=== PATIENT | female | born 1980 | race Caucasian/White ===

== ENCOUNTER 2017-11-12 22:13 | Emergency (ER) | payer MEDICAID ==
[~2017-11-12] VITALS: Ht 165.1 cm; Wt 65.4 kg
[2017-11-12 22:21] VITALS: Ht 165.1 cm; Wt 65.4 kg
[2017-11-12 23:37] LABS: UA SPECIFIC GRAVITY 1.025 (1.005-1.035); microscopic required? YES; urine erythrocyte NEGATIVE (NEGATIVE)
[2017-11-13 01:07] VITALS: BP 132/73
== END 2017-11-13 01:07 | disposition home or self-care (01) ==
LOC: ED 22:13
PROVIDERS: Emergency Medicine
DX: O23.41 Unspecified infection of urinary tract in pregnancy, first trimester (principal); Z3A.01 Less than 8 weeks gestation of pregnancy
CPT/HCPCS: Q0092

== ENCOUNTER 2018-01-21 17:48 | Emergency (ER) | payer MEDICAID ==
[~2018-01-21] VITALS: Ht 167.6 cm; Wt 77.6 kg
[2018-01-21 18:14] VITALS: Ht 167.6 cm; Wt 77.6 kg
[2018-01-21 20:10] LABS: UA SPECIFIC GRAVITY <=1.005 (1.005-1.035); microscopic required? YES; urine erythrocyte NEGATIVE (NEGATIVE)
[2018-01-21 20:47] VITALS: BP 113/55
== END 2018-01-21 20:55 | disposition home or self-care (01) ==
LOC: ED 17:48
PROVIDERS: Emergency Medicine
DX: O26.892 Other specified pregnancy related conditions, second trimester (principal); R10.30 Lower abdominal pain, unspecified; J45.909 Unspecified asthma, uncomplicated; Z88.0 Allergy status to penicillin; Z3A.00 Weeks of gestation of pregnancy not specified